=== PATIENT | female | born 1960 | race Caucasian/White ===

== ENCOUNTER 2018-11-08 05:37 | Inpatient (IN) | payer BC ==
[~2018-11-08] VITALS: Ht 175.3 cm; Wt 84.9 kg
[2018-11-08] VITALS (23 sets, daily range): BP systolic 91–115; BP diastolic 42–61; PULSE 54–98; RESP 11–30; Ht 175.3 cm; Wt 84.9 kg
[~2018-11-08 05:37] MED LIST: SERT25TA83 PO
[2018-11-08] MEDS ORDERED: HEPARIN 1000 UNITS/ML 10 ML INJ ONE (06:51)
[2018-11-08] MEDS ORDERED: GELATIN SIZE 100 SPONGE ONE (06:51)
[2018-11-08] MEDS ORDERED: THROMBIN 5000 UNIT (RECOTHROM) VIAL ONE (06:51)
[2018-11-08] MEDS ORDERED: BUPIVACAINE 0.5%/EPI (SDV) 30 ML INJ ONE (06:52)
[2018-11-08] MEDS: LACTATED RINGER'S 1,000 ML IV SCH (07:01)
--- NOTE | 2018-11-08 07:23 | HPN ---
Date/Time of Note Date/Time of Note DATE: 11/08/18 TIME: 07:23 Interval H&P Admission Note Pt. seen H&P reviewed: No system changes SHADI VÁSQUEZ MD Nov 08, 2018 07:23
[2018-11-08] MEDS ORDERED: CEFAZOLIN 2 GM/50 ML (PMX) 50 ML IVPB SCH (07:30)
--- NOTE | 2018-11-08 07:31 | PREAC ---
Date/Time of Note Date/Time of Note DATE: 11/08/18 TIME: 07:28 Anesthesia Eval and Record Evaluation Time Pre-Procedure Interview DATE: 11/08/18 TIME: 07:28 Age 58 Sex female NPO: 8 hrs Preoperative diagnosis L5-S1 Lumbar DDD Planned procedure L5-S1 Lumbar anterior laminectomy Past Medical History Past Medical History: Includes GI: Obesity Surgery & Anesthesia Issues No known issue Meds Anticoagulation: No Beta Berenice within 24 hr: No Reason Beta Berenice not given: Pt. not on B-Berenice Reported Medications Sertraline Hcl* (Sertraline Hcl*) 25 Mg Tablet, 25 MG PO DAILY, #30 TAB 11/08/18 Current Medications Lactated Ringer's 1,000 ml @ 25 mls/hr Q24H IV Last administered on 11/08/18at 07:01; Admin Dose 25 MLS/HR; Start 11/08/18 at 07:00 Cefazolin Sodium/ Dextrose 50 ml @ 100 mls/hr PRE-OP IVPB ; Start 11/08/18 at 07:30; Stop 11/08/18 at 15:00 Meds reviewed: Yes Allergies Coded Allergies: trazodone (Verified Allergy, Severe, 11/08/18) UTICARIA zolpidem (Verified Allergy, Severe, 11/08/18) UTICARIA No Known Drug Allergies (Verified Allergy, Unknown, 11/08/18) Allergies Reviewed: Yes Labs/Studies Labs Reviewed: Reviewed by anesthesiologist Blood Bank Test 11/08/18 06:25 11/08/18 06:35 Blood Type O POSITIVE Blood Product Summary Counts test: N/A Studies: ECG Pre-procedure Exam Last vitals Vital Signs Date Temp Pulse Resp B/P (MAP) Pulse Ox O2 O2 Flow FiO2 Time Delivery Rate 11/08/18 97.5 64 16 112/61 97 Room Air 06:54 (78) Airway: Adequate mouth opening, Adequate thyromental dist Mallampati: Mallampati II Teeth: Normal Lung: Normal Heart: Normal ASA Physical Status ASA physical status: 3 Emergency: None Planned Anesthetic General/MAC: ETT, A Line Planned Pain Management Parenteral pain med Pre-operative Attestations Prior to commencing anesthesia and surgery, the patient was re-evaluated, there was verification of: *The patient's identity *The results of appropriate recent lab work and preoperative vital signs *The above evaluation not changing prior to induction *Anesthetic plan, risk benefits, alternative and complications discussed with patient/family; questions answered; patient/family understands, accepts and wishes to proceed. MIGUEL WILD MD Nov 08, 2018 07:31
[2018-11-08] MEDS ORDERED: SEVOFLURANE 15 MIN ONE (07:36)
[2018-11-08] MEDS ORDERED: MIDAZOLAM 1 MG/ML 2 ML INJ ONE (07:36)
[2018-11-08] MEDS ORDERED: CEFAZOLIN 1 GM INJ ONE ×2 (07:54→12:02)
[2018-11-08] MEDS ORDERED: HEMOSTATIC MATRIX/ THROMBIN 1 EA SYG ZFS ONE (09:24)
[2018-11-08] MEDS ORDERED: FUROSEMIDE 20 MG INJ ONE (12:00)
[2018-11-08] MEDS ORDERED: LIDOCAINE 2% (SDV) 5 ML INJ ONE (12:02)
[2018-11-08] MEDS ORDERED: ROCURONIUM 50 MG INJ ONE (12:02)
[2018-11-08] MEDS ORDERED: PROPOFOL 20 ML ONE (12:02)
[2018-11-08] MEDS ORDERED: ONDANSETRON 4 MG INJ ONE (12:03)
[2018-11-08] MEDS ORDERED: GLYCOPYRROLATE 0.4 MG INJ ONE (12:06)
[2018-11-08] MEDS ORDERED: NEOSTIGMINE 3 MG/3 ML SYRINGE ONE (12:06)
[2018-11-08] MEDS ORDERED: MEPERIDINE 25 MG INJ IV PRN (12:30)
[2018-11-08] MEDS ORDERED: METOCLOPRAMIDE 10 MG INJ IV PRN (12:30)
[2018-11-08] MEDS ORDERED: ONDANSETRON 4 MG INJ IV PRN ×2 (12:30→13:00)
[2018-11-08] MEDS ORDERED: DIPHENHYDRAMINE 50 MG INJ IV PRN (12:30)
[2018-11-08] MEDS ORDERED: HYDROmorphONE 1 MG/5 ML IV SYRINGE IV PRN ×2 (12:30)
--- NOTE | 2018-11-08 12:31 | PAC ---
Date/Time of Note Date/Time of Note DATE: 11/08/18 TIME: 12:31 Post-Anesthesia Notes Post-Anesthesia Note Last documented vital signs Vital Signs Date Temp Pulse Resp B/P (MAP) Pulse Ox O2 O2 Flow FiO2 Time Delivery Rate 11/08/18 97.8 12:28 11/08/18 64 16 112/61 97 Room Air 06:54 (78) Activity: WNL Respiratory function: WNL Cardiovascular function: WNL Mental status: Baseline Pain reasonably controlled: Yes Hydration appropriate: Yes Nausea/Vomiting absent: Yes Comments BP:112/67, P:68, Spo2:100%, T:98,7, MIGUEL WILD MD Nov 08, 2018 12:31
[2018-11-08] MEDS: FENTAnyl 50 MCG/ML VIAL IV PRN ×2 (12:43→12:52)
--- NOTE | 2018-11-08 12:54 | OPR ---
Date/Time of Note Date/Time of Note DATE: 11/08/18 TIME: 12:47 Operative Report Free Text/Dictation DATE OF OPERATION: 11/08/2018 PREOPERATIVE DIAGNOSES: L5-S1 severe degenerative disk disease with left greater than right foraminal stenosis with radiculopathy POSTOPERATIVE DIAGNOSES: L5-S1 severe degenerative disk disease with left greater than right foraminal stenosis with radiculopathy OPERATION PERFORMED: 1. Anterior lumbar interbody fusion via retroperitoneal approach L5-S1 2. Placement of anterior interbody device L5-S1 3. Placement of posterior spinal segmental instrumentation L5-S1 4. Posterior spinal fusion L5-S1 5. Use of morselized allograft bone and small BMP 6. Interpretation of neuromonitoring INSTRUMENTATION: 1. Synfix Gil Stand alone PEEK Cage 12mm height x 36mm Widthx 28 mmAP / 14 degr ees lordosis 2. 4.0mm self drilling screws 25mm length x 4 3. extra-Small BMP with use of morselized allograft bone 4. NuVasive Reline MAS system percutaneous screws: L5 6.5 x 40mm x 2; S1-6.5 x 40mm x 2 5. 40mm laureano on Left, 45 mm Laureano on Right; set screws x 4 ANAESTHESIA: General Endotracheal ESTIMATED BLOOD LOSS: 100 mL COMPLICATIONS: None SURGEON: Shadi Vásquez MD VASCULAR ACCESS SURGEON: Tru Thorpe MD SURGICAL INDICATION: The patient is a 58 year-old female who presents with an increasing history of back and leg pain. The patient was found to have severe degenerative disk disease at L5-S1 with associated formainal stenosis. The patient had failed conservative treatments. Risks, benefits and alternatives to an anterior and posterior spinal fusion with instrumentation were explained to the patient including but not exclusive of bleeding, infection, visceral injury, nerve injury, nonunion, instrumentation failure, lack of symptom relief, myocardial infarction, stroke, and pulmonary embolism, and they wished to proceed. PROCEDURE IN DETAIL: The patient was identified in the preoperative area and taken to the operating room. Rapid induction of general endotracheal anesthesia was performed. A time out was held. Patient was given 2 g of cefazolin for prophylaxis. The patient was positioned in the supine position on the operative table. All bony prominences were well padded. The patient's abdomen and left flank were prepped and draped in the usual sterile fashion. A transverse skin incision was made at the L5-S1 level by our vascular surgeon Dr. Thorpe. After the exposure was completed, I performed a L5-S1 diskectomy. The disc was incised using a sharp 15 mm blade. I then used a booth elevator to loosen the disk material from the superior and inferior endplates. I then used a rongeur to remove the disc material and a series of curved and straight curettes to evacuate the disc space. I also used a series of pituitaries and kerrisons to ensure appropriate end plate preparation. Attention was placed to ensure removal of disk material to bleeding endplates without violation of the endplate. I then used the trial rasps to prepare and size the disc space and was able to place a 12 mm spacer with 14 degrees of lordosis. To ensure appropriate sizing of the implant, I checked for fit and placement under C arm control and I felt the 14 degree lordotic 12 mm cage gained good lordosis and christian of disc height and was an appropriate fit. I also ensured appropriate reduction of the spondylolisthesis. I then inserted the Synfix PEEK 12 mm cage after the trail. This cage was filled with a extra-small BMP and morselized bone allograft. Four locking screws (4.0 x 25mm) were then placed using the guide under fluoroscopy . Additional morselized allograft was placed around and anterior to the cage in the disc space. The wound was irrigated. X-rays were taken to check for instruments. The wound was then closed by our vascular access surgeon in standard technique. The posterior rectus sheath and anterior rectus sheath were both repaired. Sterile dressing was then placed. Attention was then turned toward placement of posterior spinal segmental instrumentation at L5-S1 after the patient was flipped carefully to the prone position. All bony prominences were well padded. The patient's lumbar spine was then prepped and draped in sterile fashion. Using intraoperative fluoroscopy, the pedicles were identified at each level. Care was taken to alter the fluoroscopic view to have a true AP and lateral at each level. Jamshidi needles were then passed down to the lateral aspect of the pedicles through stab incisions. The Jamshidi needles were malleted into the pedicles. These were also performed under EMG guidance. Care was taken to ensure that the needles did not pass the medial wall of the pedicle on the AP view prior to checking that the needle was past the posterior wall of the vertebral body. The needles were then malleted further into the vertebral bodies themselves. Guidewires were passed through the needles and the needles were removed. Taps were applied over the guidewires. Screws were then placed bilaterally into the vertebral bodies. AP and lateral views confirmed appropriate placement of the instrumentation. Attention was turned toward the posterior spinal fusion at L5-S1. Rods were selected of the appropriate length and placed into the screw heads. End caps were applied and final tightening was performed using a kmfxwm-oxrzyyz-ycbxve wrench. The exposed the facet joints were decorticated. A small remaining amount of allograft was placed into the facet joints to facilitate the posterior fusion. The wound was irrigated copiously using normal saline. The fascia was then closed using 1 Vicryl in interrupted fashion. Subcutaneous tissue was closed using 2-0 Vicryl in interrupted fashion. Skin was closed using a running 4-0 Monocryl stitch. The wounds were dressed using Dermabond, sterile gauze and Tegaderm. The patient was returned to the supine position. The patient was extubated immediately postoperatively and taken to the recovery room in stable condition. Procedure Date: Nov 08, 2018 Preoperative Diagnosis L5-S1 severe degenerative disk disease with left greater than right foraminal stenosis with radiculopathy Postoperative Diagnosis L5-S1 severe degenerative disk disease with left greater than right foraminal s tenosis with radiculopathy Operation/Procedure Performed 1. Anterior lumbar interbody fusion via retroperitoneal approach L5-S1 2. Placement of anterior interbody device L5-S1 3. Placement of posterior spinal segmental instrumentation L5-S1 4. Posterior spinal fusion L5-S1 5. Use of morselized allograft bone and small BMP 6. Interpretation of neuromonitoring Surgeon see signature line Anodic Treater Dr. Thorpe for anterior access only Anesthesia Type: general Estimated Blood Loss: 50 - 100 ml's Transfusion none Specimen L5-S1 disk Grafts/Implants none Complications none Pt Condition Post Procedure: stable Disposition: PACU Procedure Description PROCEDURE IN DETAIL: The patient was identified in the preoperative area and taken to the operating room. Rapid induction of general endotracheal anesthesia was performed. A time out was held. Patient was given 2 g of cefazolin for prophylaxis. The patient was positioned in the supine position on the operative table. All bony prominences were well padded. The patient's abdomen and left flank were prepped and draped in the usual sterile fashion. A transverse skin incision was made at the L5-S1 level by our vascular surgeon Dr. Thorpe. After the exposure was completed, I performed a L5-S1 diskectomy. The disc was incised using a sharp 15 mm blade. I then used a booth elevator to loosen the disk material from the superior and inferior endplates. I then used a rongeur to remove the disc material and a series of curved and straight curettes to nati bassem the disc space. I also used a series of pituitaries and kerrisons to ensure appropriate end plate preparation. Attention was placed to ensure removal of disk material to bleeding endplates without violation of the endplate. I then used the trial rasps to prepare and size the disc space and was able to place a 12 mm spacer with 14 degrees of lordosis. To ensure appropriate sizing of the implant, I checked for fit and placement under C arm control and I felt the 14 degree lordotic 12 mm cage gained good lordosis and christian of disc height and was an appropriate fit. I also ensured appropriate reduction of the spondylolisthesis. I then inserted the Synfix PEEK 12 mm cage after the trail. This cage was filled with a extra-small BMP and morselized bone allograft. Four locking screws (4.0 x 25mm) were then placed using the guide under fluoroscopy . Additional morselized allograft was placed around and anterior to the cage in the disc space. The wound was irrigated. X-rays were taken to check for instruments. The wound was then closed by our vascular access surgeon in standard technique. The posterior rectus sheath and anterior rectus sheath were both repaired. Sterile dressing was then placed. Attention was then turned toward placement of posterior spinal segmental instrumentation at L5-S1 after the patient was flipped carefully to the prone position. All bony prominences were well padded. The patient's lumbar spine was then prepped and draped in sterile fashion. Using intraoperative fluoroscopy, the pedicles were identified at each level. Care was taken to alter the fluoroscopic view to have a true AP and lateral at each level. Jamshidi needles were then passed down to the lateral aspect of the pedicles through stab incisions. The Jamshidi needles were malleted into the pedicles. These were also performed under EMG guidance. Care was taken to ensure that the needles did not pass the medial wall of the pedicle on the AP view prior to checking that the needle was past the posterior wall of the vertebral body. The needles were then malleted further into the vertebral bodies themselves. Guidewires were passed through the needles and the needles were removed. Taps were applied over the guidewires. Screws were then placed bilaterally into the vertebral bodies. AP and lateral views confirmed appropriate placement of the instrumentation. Attention was turned toward the posterior spinal fusion at L5-S1. Rods were selected of the appropriate length and placed into the screw heads. End caps were applied and final tightening was performed using a qulhez-rfunorw-ylvhno wrench. The exposed the facet joints were decorticated. A small remaining amount of allograft was placed into the facet joints to facilitate the posterior fusion. The wound was irrigated copiously using normal saline. The fascia was then closed using 1 Vicryl in interrupted fashion. Subcutaneous tissue was closed using 2-0 Vicryl in interrupted fashion. Skin was closed using a running 4-0 Monocryl stitch. The wounds were dressed using Dermabond, sterile gauze and Tegaderm. The patient was returned to the supine position. The patient was extubated immediately postoperatively and taken to the recovery room in stable condition. SHADI VÁSQUEZ MD Nov 08, 2018 12:54
[2018-11-08] MEDS ORDERED: NACL 0.9% 3 ML SYG IV SCH (13:00)
[2018-11-08] MEDS ORDERED: AL HYDROX/MG HYDROX/SIMETH 30 ML CUP PO PRN (13:00)
[2018-11-08] MEDS ORDERED: NALOXONE (0.4 MG/ML) INJ IV PRN (13:00)
[2018-11-08] MEDS ORDERED: PROCHLORPERAZINE 10 MG TAB PO PRN (13:00)
[2018-11-08] MEDS ORDERED: HYDROCODONE/APAP (5/325) TAB PO PRN ×2 (13:00)
[2018-11-08] MEDS: HYDROmorphONE 0.2 MG/ML PCA IV SCH (13:20)
[2018-11-08] MEDS: DEXTROSE 5%-0.45% NACL 1,000 ML IV SCH ×2 (14:35→23:47)
--- NOTE | 2018-11-08 17:20 | OPR ---
DATE OF OPERATION: PREOPERATIVE DIAGNOSIS: Degenerative disk disease, lumbosacral spine. POSTOPERATIVE DIAGNOSIS: Degenerative disk disease, lumbosacral spine. OPERATION PERFORMED: 1. Anterior retroperitoneal exposure interbody fusion lumbosacral spine, L5-S1. 2. Ligation of middle sacral vessels. SURGEON: Geoff Fountain MD SENIOR SALES EXECUTIVE: Shadi Vásquez MD ANESTHESIA: General. ESTIMATED BLOOD LOSS: 50 mL. INFORMED CONSENT: Risks, benefits, complications, alternative therapies, high-risk nature of the ope ration fully explained to the patient and the family, consent obtained. Risks and benefits that were explained to the patient and the family included but not limited to bleeding, infection, damage to b owel, damage to ureter, wound infection, wound dehiscence, DVT, PE, loss of life, loss of limb, high- risk nature of the operation fully explained and stressed to the patient. All questions answered. OPERATIVE TECHNIQUE: The patient was placed in supine position, prepped and draped in usual sterile fashion. I made an 8 cm incision in the left lower quadrant horizontal fashion. Incision was taken down to subcutaneous tissue which was then opened using electrocautery. Left anterior rectus sheath was opened in the direction of the wound. Left rectus muscle was mobilized superiorly and inferiorly . The posterior rectus sheath was opened superiorly about 1 cm, at this time, I dissected the retrop eritoneal space palpated in the left iliac artery pulsations. Next, I placed a Bookwalter retractor, retracting the bowel contents to the right, left rectus muscle to the left. I dissected the left co mmon iliac artery and vein, external iliac artery and vein, middle sacral vessels were dissected and ligated using titanium clips. The right common iliac artery and vein was dissected and retracted to the right. The left common iliac artery and vein was dissected and retracted to the left. Electroca utery was not used close to the spine or the nerves. Exposure for L5-S1 was obtained between the rig ht and left common iliac artery and vein. We proceeded with the diskectomy and placement of the new cage. Please refer to Dr. Vásquez's dictation for the details of that operation. After all x-rays were satisfactorily read by Dr. Vásquez the needle count and sponge count was correct. The wound was irrigated using antibiotic solution anterior rectus sheath was closed using a #1 Vicryl suture in running fashion with interrupted sutures in the middle. The wound was irrigated again and closed in 2 layers of 2-0 Vicryl suture for subQ. Steri-Strips for the skin. Patient tolerated procedure dena mcginnis Dictated By: GEOFF FOUNTAIN MD FM/NTS Conf#: [id number] DID#: [id number] CC: SHADI VÁSQUEZ MD;*EndCC*
[2018-11-08] MEDS: CEFAZOLIN 1 GM/50 ML (PMX) 50 ML IVPB SCH ×2 (17:31→23:58)
--- NOTE | 2018-11-08 21:10 | CONS ---
DATE OF ADMISSION: 11/08/2018 DATE OF CONSULTATION: 11/08/[address] Vásquez for allowing me to participate in the medical management of this patient . REASON FOR CONSULTATION: To manage the patient's anxiety, depression and hyperlipidemia. HISTORY OF PRESENT ILLNESS: This 58-year-old female is now postop an anterior, posterior lumbar spine interbody fusion via retroperitoneal approach. The patient had been having low back pain with some leg pain preoperatively. She was diagnosed with severe degenerative disk disease at L5 to S1 with associated foraminal stenosis. Today Dr. Vásquez performed a surgery, which included an anterior lumbar interbody fusion of L5 to S1 and posterior spinal fusion of L5 to S1. The patient is now in the orthopedic unit. She is awake and alert. She says that her pain is under control. She has no chest pain or shortness of breath. PAST MEDICAL HISTORY: hyperlipidemia, anxiety, depression. MEDICATIONS: Zoloft 25 mg a day. PRIOR SURGERY: Tonsillectomy, appendectomy, hemorrhoid surgery. PHYSICAL EXAMINATION: VITAL SIGNS: Temperature 98, pulse is 64, respirations 18, blood pressure 108/59, O2 saturation 98% on 2 liter nasal cannula. HEENT: Head normocephalic. Eyes: Extraocular muscles intact. NOSE AND MOUTH: Normal. NECK: Supple. No neck vein distention. LUNGS: Clear to auscultation. HEART: Regular rhythm. No murmurs, gallops, or rubs. ABDOMEN: Soft. She does have a lower abdominal fresh surgical wound. There is no peripheral edema. IMPRESSION: This patient is now postop and anterior, posterior lumbosacral spine surgery and fusion of L5 to S1. This was done because of spinal stenosis and back pain. She is doing well at this time. I will manage her anxiety, depression and hyperlipidemia. PLAN: 1. Resume routine medications. 2. Check labs in the morning. 3. Postop lumbar spine surgery protocol. 4. I will follow the patient along with you. Dictated By: RUSTY OBRIEN MD, ND/CHARELS Conf#: [id number] DID#: [id number] CC: SHADI VÁSQUEZ MD;*EndCC* MTDD
[2018-11-09 00:38] VITALS: BP 105/54; PULSE 73; RESP 18
[2018-11-09] MEDS: HYDROmorphONE 0.2 MG/ML PCA IV SCH (00:58)
[2018-11-09] MEDS: CEFAZOLIN 1 GM/50 ML (PMX) 50 ML IVPB SCH ×2 (05:44→12:05)
[2018-11-09] MEDS: LACTATED RINGER'S 1,000 ML IV SCH (07:00)
[2018-11-09 07:59] VITALS: BP 90/52; PULSE 71; RESP 18
[2018-11-09] MEDS: SERTRALINE 50 MG TAB PO SCH (08:28)
[2018-11-09] MEDS: DOCUSATE SODIUM 100 MG CAP PO SCH ×2 (08:28→20:42)
[2018-11-09] MEDS ORDERED: SOD CHLORIDE 0.9% 250 ML IV ONE (09:00)
--- NOTE | 2018-11-09 09:01 | CONS ---
Assessment/Plan Assessment/Plan Hospital Course (Demo Recall) 1. She is now 1 day postop an anterior posterior, lumbar sacral spine interbody fusion. Her blood pressure is relatively low. I have ordered a 250 cc bolus of normal saline. 2. She is complaining of some numbness in the right calf area without calf tenderness. I will order a venous Doppler to rule out DVT although my suspicion is low. 3. Start physical therapy after above tests and treatments are done. Consultation Date/Type/Reason Admit Date/Time Nov 08, 2018 at 12:54 Initial Consult Date Date/Time of Note DATE: 11/09/18 TIME: 08:54 24 HR Interval Summary Free Text/Dictation Jimmy is awake and alert. She is now 1 day postop a anterior posterior lumbar sacral spine interbody fusion. She is complaining of right calf numbness. She denies calf tenderness.. Her pain is well controlled. She is about to start physical therapy. Constitutional: improved Exam/Review of Systems Exam Vitals Vital Signs Date Temp Pulse Resp B/P (MAP) Pulse Ox O2 O2 Flow FiO2 Time Delivery Rate 11/09/18 99.3 71 18 90/52 (65) 98 Nasal 07:59 Cannula 11/08/18 8.0 12:56 Intake and Output 11/08/18 11/08/18 11/09/18 1515:00 23:00 07:00 IntakeIntake Total 2800 ml 350 ml 1340 ml OutputOutput Total 1670 ml 500 ml BalanceBalance 1130 ml 350 ml 840 ml Exam She has a feeling of numbness in the right calf, without tenderness. Constitutional: alert, oriented, well developed Respiratory: clear to auscultation, normal air movement Cardiovascular: regular rate and rhythm Gastrointestinal: soft, non-tender Results Result Diagram: 11/09/18 0515 11/09/18 0515 Results 24hrs Laboratory Tests Test 11/09/18 05:15 11/09/18 08:02 Hemoglobin 10.5 L Hematocrit 31.6 L Sodium Level 128 L Potassium Level 3.4 L Chloride Level 96 L Carbon Dioxide Level 29 Anion Gap 3 L Blood Urea Nitrogen 7 Creatinine 0.59 Est Glomerular Filtrat Rate mL/min > 60 Glucose Level 113 Calcium Level 7.2 L Lab Scanned Report REFERENCE LAB Medications Medication Current Medications Lactated Ringer's 1,000 ml @ 25 mls/hr Q24H IV Last administered on 11/08/18at 07:01; Admin Dose 25 MLS/HR; Start 11/08/18 at 07:00 Dextrose/Sodium Chloride 1,000 ml @ 100 mls/hr Q10H IV Last administered on 11/08/18at 23:47; Admin Dose 100 MLS/HR; Start 11/08/18 at 12:54 Acetaminophen/ Hydrocodone Bitart ([place] (5/325)) 1 tab Q4H PRN PO .PAIN 1-5; Start 11/08/18 at 13:00 Acetaminophen/ Hydrocodone Bitart ([place] (5/325)) 2 tab Q4H PRN PO .PAIN 6-10; Start 11/08/18 at 13:00 Cefazolin Sodium 50 ml @ 100 mls/hr Q6 IVPB Last administered on 11/09/18at 05:44; Admin Dose 100 MLS/HR; Start 11/08/18 at 18:00; Stop 11/09/18 at 12:29 Prochlorperazine (Compazine) 10 mg Q4H PRN PO NAUSEA/VOMITING; Start 11/08/18 at 13:00 Ondansetron HCl (Zofran Inj) 4 mg Q6H PRN IV NAUSEA/VOMITING; Start 11/08/18 at 13:00 Al Hydrox/Mg Hydrox/Simethicone (Mag-Al Plus) 15 ml Q4H PRN PO .CONSTIPATION; Start 11/08/18 at 13:00 Docusate Sodium (Colace) 100 mg BID PO Last administered on 11/09/18at 08:28; Admin Dose 100 MG; Start 11/09/18 at 09:00 Acetaminophen (Tylenol Tab) 650 mg Q4H PRN PO TEMP GREATER THAN 101F OR GARZA; Start 11/08/18 at 13:00 IV Flush (NS 3 ml) 3 ml PER PROTOCOL IV ; Start 11/08/18 at 13:00 Hydromorphone HCl (Dilaudid WRITING CENTER DIRECTOR) Q4PCA IV Last administered on 11/09/18at 00:58; Admin Dose 6 MG; Start 11/08/18 at 13:00 Naloxone HCl (Narcan) 0.2 mg Q2M PRN IV RR 8 BREATHS/MIN OR LESS; Start 11/08/18 at 13:00 Sertraline HCl (Zoloft) 25 mg DAILY PO Last administered on 11/09/18at 08:28; Admin Dose 25 MG; Start 11/09/18 at 09:00 RUSTY OBRIEN MD Nov 09, 2018 09:01
[2018-11-09] MEDS: DEXTROSE 5%-0.45% NACL 1,000 ML IV SCH ×2 (12:01→18:54)
--- NOTE | 2018-11-09 13:09 | CONS ---
Consultation Date/Type/Reason Admit Date/Time Nov 08, 2018 at 12:54 Initial Consult Date Date/Time of Note DATE: 11/09/18 TIME: 13:06 24 HR Interval Summary Free Text/Dictation S: 58 yo POD#1 s/p ALIF w/ PSIF. Pain under control. Tolerating clears. No acute events over night. Some low BP w/ dilaudid. O: Vital Signs Date Temp Pulse Resp B/P (MAP) Pulse Ox O2 O2 Flow FiO2 Time Delivery Rate 11/09/18 99.3 71 18 90/52 (65) 98 Nasal 07:59 Cannula 11/08/18 8.0 12:56 Gen: AAOx3, NAD Abdomen: mild distension, mild TTP Spine: dressing C/D/I, neuro-intact A/P:58 yo POD#1 s/p ALIF w/ PSIF 1. appreciate med recs 2. OOB w/ PT 3. 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 D/C carrasco geena Exam/Review of Systems Exam Vitals Vital Signs Date Temp Pulse Resp B/P (MAP) Pulse Ox O2 O2 Flow FiO2 Time Delivery Rate 11/09/18 99.3 71 18 90/52 (65) 98 Nasal 07:59 Cannula 11/08/18 8.0 12:56 Intake and Output 11/08/18 11/08/18 11/09/18 1515:00 23:00 07:00 IntakeIntake Total 2800 ml 350 ml 1340 ml OutputOutput Total 1670 ml 500 ml BalanceBalance 1130 ml 350 ml 840 ml Results Result Diagram: 11/09/18 0515 11/09/18 0515 Results 24hrs Laboratory Tests Test 11/09/18 05:15 11/09/18 08:02 Hemoglobin 10.5 L Hematocrit 31.6 L Sodium Level 128 L Potassium Level 3.4 L Chloride Level 96 L Carbon Dioxide Level 29 Anion Gap 3 L Blood Urea Nitrogen 7 Creatinine 0.59 Est Glomerular Filtrat Rate mL/min > 60 Glucose Level 113 Calcium Level 7.2 L Lab Scanned Report REFERENCE LAB Medications Medication Current Medications Lactated Ringer's 1,000 ml @ 25 mls/hr Q24H IV Last administered on 11/08/18at 07:01; Admin Dose 25 MLS/HR; Start 11/08/18 at 07:00 Dextrose/Sodium Chloride 1,000 ml @ 100 mls/hr Q10H IV Last administered on 11/09/18at 12:01; Admin Dose 100 MLS/HR; Start 11/08/18 at 12:54 Acetaminophen/ Hydrocodone Bitart ([place] (5/325)) 1 tab Q4H PRN PO .PAIN 1-5; Start 11/08/18 at 13:00 Acetaminophen/ Hydrocodone Bitart ([place] (5/325)) 2 tab Q4H PRN PO .PAIN 6-10; Start 11/08/18 at 13:00 Prochlorperazine (Compazine) 10 mg Q4H PRN PO NAUSEA/VOMITING; Start 11/08/18 at 13:00 Ondansetron HCl (Zofran Inj) 4 mg Q6H PRN IV NAUSEA/VOMITING; Start 11/08/18 at 13:00 Al Hydrox/Mg Hydrox/Simethicone (Mag-Al Plus) 15 ml Q4H PRN PO .CONSTIPATION; Start 11/08/18 at 13:00 Docusate Sodium (Colace) 100 mg BID PO Last administered on 11/09/18at 08:28; Admin Dose 100 MG; Start 11/09/18 at 09:00 Acetaminophen (Tylenol Tab) 650 mg Q4H PRN PO TEMP GREATER THAN 101F OR GARZA; Start 11/08/18 at 13:00 IV Flush (NS 3 ml) 3 ml PER PROTOCOL IV ; Start 11/08/18 at 13:00 Hydromorphone HCl (Dilaudid A[employer]ICULTURAL SPECIALIST) Q4PCA IV Last administered on 11/09/18at 00:58; Admin Dose 6 MG; Start 11/08/18 at 13:00 Naloxone HCl (Narcan) 0.2 mg Q2M PRN IV RR 8 BREATHS/MIN OR LESS; Start 11/08/18 at 13:00 Sertraline HCl (Zoloft) 25 mg DAILY PO Last administered on 11/09/18at 08:28; Admin Dose 25 MG; Start 11/09/18 at 09:00 SHADI VÁSQUEZ MD Nov 09, 2018 13:09
[2018-11-09] MEDS: ACETAMINOPHEN 1000MG/100ML IV 100 ML IVPB SCH ×2 (13:50→20:43)
[2018-11-09 14:00] VITALS: BP 92/53; PULSE 79; RESP 18
[2018-11-09 20:15] VITALS: BP 99/47; PULSE 90; RESP 18
[2018-11-10 01:51] VITALS: BP 110/57; PULSE 84; RESP 18
[2018-11-10] MEDS: ACETAMINOPHEN 1000MG/100ML IV 100 ML IVPB SCH (06:14)
[2018-11-10] MEDS: DEXTROSE 5%-0.45% NACL 1,000 ML IV SCH (06:20)
[2018-11-10] MEDS: LACTATED RINGER'S 1,000 ML IV SCH (07:00)
[2018-11-10 07:42] VITALS: BP 105/57; PULSE 75; RESP 18
[2018-11-10] MEDS: SERTRALINE 50 MG TAB PO SCH (08:10)
[2018-11-10] MEDS: DOCUSATE SODIUM 100 MG CAP PO SCH ×2 (08:10→21:19)
--- NOTE | 2018-11-10 08:44 | CONS ---
Assessment/Plan Assessment/Plan Hospital Course (Demo Recall) 1. She is now 2 days postop an anterior posterior, lumbar sacral spine interbody fusion. Her vital signs are stable. Her sodium and potassium were low from labs done yesterday. I will repeat those labs today. Her abdomen is soft, she is passing gas and has good bowel sounds. 2. She is complaining of some numbness in the right calf area without calf tenderness. The venous Doppler of the right leg done yesterday did not show a DVT. 3. She will continue with physical therapy. Consultation Date/Type/Reason Admit Date/Time Nov 08, 2018 at 12:54 Initial Consult Date Date/Time of Note DATE: 11/10/18 TIME: 08:39 24 HR Interval Summary Free Text/Dictation This patient is now 2 days postop and anterior posterior lumbar sacral spine surgery with fusion. She is feeling well. She says that she is passing gas. She has not had a bowel movement. Constitutional: no complaints, improved Exam/Review of Systems Exam Vitals Vital Signs Date Temp Pulse Resp B/P (MAP) Pulse Ox O2 O2 Flow FiO2 Time Delivery Rate 11/10/18 98.6 75 18 105/57 94 07:42 (73) 11/10/18 Room Air 01:51 11/08/18 8.0 12:56 Intake and Output 11/09/18 11/09/18 11/10/18 1515:00 23:00 07:00 IntakeIntake Total 600 ml 1100 ml 1100 ml OutputOutput Total 600 ml 3100 ml BalanceBalance 0 ml -2000 ml 1100 ml Constitutional: alert, oriented, well developed Respiratory: clear to auscultation, normal air movement Cardiovascular: regular rate and rhythm Gastrointestinal: soft, bowel sounds, tender Musculoskeletal: nl extremities to inspection Results Result Diagram: 11/09/18 0515 11/09/18 0515 Medications Medication Current Medications Lactated Ringer's 1,000 ml @ 25 mls/hr Q24H IV Last administered on 11/08/18at 07:01; Admin Dose 25 MLS/HR; Start 11/08/18 at 07:00 Dextrose/Sodium Chloride 1,000 ml @ 100 mls/hr Q10H IV Last administered on 11/10/18at 06:20; Admin Dose 100 MLS/HR; Start 11/08/18 at 12:54 Acetaminophen/ Hydrocodone Bitart ([place] (5/325)) 1 tab Q4H PRN PO .PAIN 1-5; Start 11/08/18 at 13:00 Acetaminophen/ Hydrocodone Bitart ([place] (5/325)) 2 tab Q4H PRN PO .PAIN 6-10; Start 11/08/18 at 13:00 Prochlorperazine (Compazine) 10 mg Q4H PRN PO NAUSEA/VOMITING; Start 11/08/18 at 13:00 Ondansetron HCl (Zofran Inj) 4 mg Q6H PRN IV NAUSEA/VOMITING; Start 11/08/18 at 13:00 Al Hydrox/Mg Hydrox/Simethicone (Mag-Al Plus) 15 ml Q4H PRN PO .CONSTIPATION; Start 11/08/18 at 13:00 Docusate Sodium (Colace) 100 mg BID PO Last administered on 11/10/18at 08:10; Admin Dose 100 MG; Start 11/09/18 at 09:00 Acetaminophen (Tylenol Tab) 650 mg Q4H PRN PO TEMP GREATER THAN 101F OR GARZA; Start 11/08/18 at 13:00 IV Flush (NS 3 ml) 3 ml PER PROTOCOL IV ; Start 11/08/18 at 13:00 Naloxone HCl (Narcan) 0.2 mg Q2M PRN IV RR 8 BREATHS/MIN OR LESS; Start 11/08/18 at 13:00 Sertraline HCl (Zoloft) 25 mg DAILY PO Last administered on 11/10/18at 08:10; Admin Dose 25 MG; Start 11/09/18 at 09:00 Acetaminophen 100 ml @ 400 mls/hr Q8 IVPB Last administered on 11/10/18at 06:14; Admin Dose 400 MLS/HR; Start 11/09/18 at 13:40; Stop 11/10/18 at 13:39 RUSTY OBRIEN MD Nov 10, 2018 08:44
[2018-11-10] MEDS ORDERED: POTASSIUM CHLORIDE (SR) 10 MEQ TAB PO ONE (12:30)
[2018-11-10] MEDS: ACETAMINOPHEN 325 MG TAB PO PRN ×2 (14:19→21:20)
[2018-11-10 14:36] VITALS: BP 114/52; PULSE 81; RESP 20
--- NOTE | 2018-11-10 18:08 | PDOCDIS ---
Discharge Instructions CONDITION [id number] Patient Condition: [id number] Good HOME CARE INSTRUCTIONS: [id number] Diet Instructions: [id number] Regular ACTIVITY: [id number] Activity Restrictions: [id number] Slowly Increase Activity Rest between Activity Avoid heavy lifting Do not Drive Do not operate Machinery Do not operate Power Tool Avoid Heavy Housework [id number] Bathing Restrictions: [id number] Shower FOLLOW UP/APPOINTMENTS Follow-up Plan Follow-up w/ Dr. Vásquez in 2 weeks SHADI VÁSQUEZ MD Nov 10, 2018 18:08
[2018-11-10 19:50] VITALS: BP 103/53; PULSE 85; RESP 18
[2018-11-11 02:30] VITALS: BP 111/55; PULSE 82; RESP 18
[2018-11-11] MEDS: ACETAMINOPHEN 325 MG TAB PO PRN (06:57)
[2018-11-11 07:33] VITALS: BP 129/58; PULSE 78; RESP 18
[2018-11-11] MEDS: DOCUSATE SODIUM 100 MG CAP PO SCH (08:53)
[2018-11-11] MEDS: SERTRALINE 50 MG TAB PO SCH (08:54)
--- NOTE | 2018-11-11 17:48 | CONS ---
Assessment/Plan Assessment/Plan Hospital Course (Demo Recall) 1. She is now 3 days postop an anterior posterior, lumbar sacral spine interbody fusion. Her vital signs are stable and her electrolytes are back to normal . She has had several BM's . She was cleared by PT and can be discharged to home today . Consultation Date/Type/Reason Admit Date/Time Nov 08, 2018 at 12:54 Initial Consult Date Date/Time of Note DATE: 11/11/18 TIME: 17:39 24 HR Interval Summary Free Text/Dictation Trina is now 3 days post op a lumbar - sacral spine surgery . She is feeling well and is up walking with the walker and has been cleared to go home by PT . Constitutional: no complaints, improved Exam/Review of Systems Exam Vitals Vital Signs Date Temp Pulse Resp B/P (MAP) Pulse Ox O2 O2 Flow FiO2 Time Delivery Rate 11/11/18 98.6 78 18 129/58 98 07:33 (81) 11/10/18 Room Air 01:51 11/08/18 8.0 12:56 Intake and Output 11/10/18 11/10/18 11/11/18 1515:00 23:00 07:00 IntakeIntake Total 800 ml OutputOutput Total 1000 ml BalanceBalance -200 ml Constitutional: alert, oriented Respiratory: clear to auscultation, normal air movement Cardiovascular: regular rate and rhythm Gastrointestinal: soft, non-tender Musculoskeletal: nl extremities to inspection Results Result Diagram: 11/11/18 0523 11/11/18 0523 Results 24hrs Laboratory Tests Test 11/11/18 05:23 White Blood Count 8.1 Red Blood Count 3.25 L Hemoglobin 10.6 L Hematocrit 32.3 L Mean Corpuscular Volume 99.4 Mean Corpuscular Hemoglobin 32.6 Mean Corpuscular Hemoglobin Concent 32.8 Red Cell Distribution Width 12.7 Platelet Count 213 Mean Platelet Volume 9.5 Immature Granulocytes % 0.400 Neutrophils % 67.7 Lymphocytes % 22.5 Monocytes % 7.3 Eosinophils % 1.7 Basophils % 0.4 Nucleated Red Blood Cells % 0.0 Immature Granulocytes # 0.030 Neutrophils # 5.5 Lymphocytes # 1.8 Monocytes # 0.6 Eosinophils # 0.1 Basophils # 0.0 Nucleated Red Blood Cells # 0.0 Sodium Level 138 Potassium Level 3.8 Chloride Level 103 Carbon Dioxide Level 31 Anion Gap 4 L Blood Urea Nitrogen 7 Creatinine 0.59 Est Glomerular Filtrat Rate mL/min > 60 Glucose Level 102 Calcium Level 8.6 Total Bilirubin 0.6 Direct Bilirubin 0.00 Indirect Bilirubin 0.6 Aspartate Amino Transf (AST/SGOT) 46 Alanine Aminotransferase (ALT/SGPT) 36 Alkaline Phosphatase 59 Total Protein 6.3 Albumin 3.2 L Globulin 3.10 Albumin/Globulin Ratio 1.03 RUSTY OBRIEN MD Nov 11, 2018 17:48
--- NOTE | 2018-11-17 12:12 | DS ---
DATE OF ADMISSION: 11/08/2018 DATE OF DISCHARGE: 11/11/2018 DIAGNOSIS ON ADMISSION: L5-S1 severe degenerative disk disease with radiculopathy. DISCHARGE DIAGNOSES: L5-S1 severe degenerative disk disease with radiculopathy. PROCEDURE PERFORMED DURING THIS ADMISSION: On 11/08/2018. the patient underwent an anterior lumbar interbody fusion with posterior spinal instrumentation and fusion. HOSPITAL COURSE: The patient had an uncomplicated hospital course. Prior to discharge, she was [place] red by physical therapy. She was passing gas. She was tolerating a regular diet. Her pain was unde r good control with p.o. pain medications. WOUND CARE: The patient was told to keep her anterior and posterior incisions clean, dry, and intact . She was told to shower but keep her wound covered. She was told to contact our office if she had any issues with her wound. FOLLOWUP: She was told to follow up with Dr. Martinez in 2 weeks for a repeat evaluation. She was told to contact our office at an earlier time if she developed any fevers, chills, chest pain, shortn ess of breath, leg swelling or any motor or sensory changes or issues with her wound. ACTIVITY AT DISCHARGE: The patient was told to wear her LSO brace when out of bed and ambulating. S he was told to avoid heavy lifting greater than 20 pounds and activities to require excessive bending and twisting. MEDICATIONS AT DISCHARGE: The patient was started on [place] 5/325 mg 1 to 2 tabs q.4-6h. p.r.n. pain . DIET AT DISCHARGE: Regular. Dictated By: SHADI DUARTE/CHARLES Conf#: [id number] DID#: [id number]
== END 2018-11-11 10:40 | disposition home or self-care (01) | DRG 455 ==
LOC: SDS 05:37 → REC 12:54 → SDS 12:54 → MS1 14:27
PROVIDERS: ADMIT Orthopaedic Surgery; ATTEND Orthopaedic Surgery
PROC: 0SG30K1 Fusion of Lumbosacral Joint with Nonautologous Tissue Substitute, Posterior Approach, Posterior Column, Open Approach (ICD-10-PCS; 2018-11-08)
PROC: 0SB40ZZ Excision of Lumbosacral Disc, Open Approach (ICD-10-PCS; 2018-11-08)
PROC: 4A11X4G Monitoring of Peripheral Nervous Electrical Activity, Intraoperative, External Approach (ICD-10-PCS; 2018-11-08)
PROC: 0SG30A0 Fusion of Lumbosacral Joint with Interbody Fusion Device, Anterior Approach, Anterior Column, Open Approach (ICD-10-PCS; principal; 2018-11-08 07:30)
DX: M51.17 Intervertebral disc disorders with radiculopathy, lumbosacral region (principal); M48.07 Spinal stenosis, lumbosacral region; F32.9 Major depressive disorder, single episode, unspecified; F41.9 Anxiety disorder, unspecified
CPT/HCPCS: 72110; 80048; 80053; 83735; 85014; 85018; 85025; 86850; 86870; 86900; 86901; 86920; 87086; 88304; 93971; 97116; 97161; 97530; C1713; C1762; J0131; J0690; J1170; J1200; J1644; J1940; J2250; J2405; J2710; J3010; J7040; J7042; J7120; L8699